=== PATIENT | male | born 1980 | race Caucasian/White ===

== ENCOUNTER 2017-10-26 14:19 | Emergency (ER) | END 2017-10-26 17:12 | disposition home or self-care (01) ==

== ENCOUNTER 2017-10-28 12:00 | Emergency (ER) | END 2017-10-28 15:30 | disposition home or self-care (01) ==

== ENCOUNTER 2018-08-27 12:52 | Emergency (ER) | payer SELFPAY ==
[~2018-08-27] VITALS: Ht 170.2 cm; Wt 93.0 kg
[~2018-08-27 12:52] MED LIST: ACET500C5 PO; IBUP-1542 PO; LISI10TA2 PO; SODI126M NASAL
[2018-08-27 12:53] VITALS: Ht 170.2 cm; Wt 93.0 kg
[2018-08-27] MEDS ORDERED: ONDANSETRON (ODT) 4 MG TAB ODT STA (14:10)
[2018-08-27] MEDS ORDERED: SOD CHLORIDE 0.9% 1,000 ML IV ONE (14:30)
[2018-08-27] MEDS ORDERED: IBUPROFEN 600 MG TAB PO ONE (14:30)
--- NOTE | 2018-08-27 14:31 | ERD ---
ER Documentation Chief Complaint Chief Complaint fever, cough, body aches x5 hrs HPI 38-year-old male presenting to the emergency department complaining of left- sided chest pain intermittently for the past 5 hours. The patient has also had headache, fever, and nausea. Symptoms are moderate to severe. The patient took no medication for relief of symptoms. He states the symptoms came on gradually after waking up today. He denies dyspnea on exertion, abdominal pain, vomiting, or other symptoms at this time. ROS All systems reviewed and are negative except as per history of present illness. Medications Home Meds Active Scripts Ibuprofen* (Motrin*) 800 Mg Tab, 800 MG PO Q6, #30 TAB Prov:KHARI WARREN PA-C 08/27/18 Ibuprofen* (Motrin*) 600 Mg Tab, 600 MG PO Q6H PRN for PAIN AND OR ELEVATED TEMP, #30 TAB Prov:FINESSE DURHAM MD 10/28/17 Lisinopril* (Lisinopril*) 10 Mg Tablet, 10 MG PO DAILY, #30 TAB Prov:VALERIA WILKINS NP 10/26/17 Acetaminophen* (Tylophen*) 500 Mg Capsule, 1 CAP PO Q6H PRN for PAIN AND OR ELEVATED TEMP, #20 CAP Prov:VALERIA WILKINS NP 10/26/17 Sodium Chloride (Saline Nasal Mist) 126 Ml Mist, 2 SPRAY NASAL Q2H PRN for NASAL CONGESTION, #1 BOTTLE Prov:VALERIA WILKINS NP 10/26/17 Allergies Allergies: Coded Allergies: No Known Allergy (Unverified , 10/28/17) PMhx/Soc History of Surgery: No Anesthesia Reaction: No Hx Neurological Disorder: No Hx Respiratory Disorders: No Hx Cardiac Disorders: Yes (Hypertension) Hx Psychiatric Problems: No Hx Miscellaneous Medical Probl: No Hx Alcohol Use: No Hx Substance Use: No Hx Tobacco Use: No Smoking Status: Never smoker FmHx Family History: No diabetes Physical Exam Vitals Vital Signs Date Temp Pulse Resp B/P (MAP) Pulse Ox O2 O2 Flow FiO2 Time Delivery Rate 08/27/18 210.8 110 22 136/84 99 Room Air 16:12 (101) 08/27/18 99.3 15:52 08/27/18 100.6 115 22 126/77 Room Air 15:15 (93) 08/27/18 100.3 129 18 169/104 96 12:53 (125) Physical Exam Const: No acute distress Head: Atraumatic Eyes: Normal Conjunctiva ENT: Normal External Ears, Nose and Mouth. Neck: Full range of motion. No meningismus. Resp: Clear to auscultation bilaterally Cardio: Regular rate and rhythm, no murmurs. Reproducible chest wall tenderness to palpation on the left. No crepitus to palpation. Abd: Soft, non tender, non distended. Normal bowel sounds Skin: No petechiae or rashes Back: No midline or flank tenderness Ext: No cyanosis, or edema Neur: Awake and alert Psych: Normal Mood and Affect Result Diagram: 08/27/18 1503 08/27/18 1503 Results 24 hrs Laboratory Tests Test 08/27/18 15:03 White Blood Count 7.6 10^3/ul Red Blood Count 5.04 10^6/ul Hemoglobin 13.6 g/dl Hematocrit 41.3 % Mean Corpuscular Volume 81.9 fl Mean Corpuscular Hemoglobin 27.0 pg Mean Corpuscular Hemoglobin Concent 32.9 g/dl Red Cell Distribution Width 13.6 % Platelet Count 197 10^3/UL Mean Platelet Volume 10.1 fl Immature Granulocytes % 0.400 % Neutrophils % 75.8 % Lymphocytes % 10.5 % Monocytes % 12.2 % Eosinophils % 0.8 % Basophils % 0.3 % Nucleated Red Blood Cells % 0.0 /100WBC Immature Granulocytes # 0.030 10^3/ul Neutrophils # 5.8 10^3/ul Lymphocytes # 0.8 10^3/ul Monocytes # 0.9 10^3/ul Eosinophils # 0.1 10^3/ul Basophils # 0.0 10^3/ul Nucleated Red Blood Cells # 0.0 10^3/ul Sodium Level 140 mmol/L Potassium Level 3.9 mmol/L Chloride Level 99 mmol/L Carbon Dioxide Level 27 mmol/L Anion Gap 14 Blood Urea Nitrogen 9 mg/dl Creatinine 0.69 mg/dl Est Glomerular Filtrat Rate mL/min > 60 mL/min Glucose Level 99 mg/dl Calcium Level 9.5 mg/dl Troponin I < 0.012 ng/ml Current Medications Medications Dose Sig/Rubio Start Time Status Last (Trade) Ordered Route PRN Stop Time Admin Dose Reason Admin Ibuprofen 600 mg ONCE ONCE 2/16/19 DC 08/27/18 (Motrin) PO 14:30 14:28 08/27/18 14:31 Ondansetron 4 mg ONCE STAT 08/27/18 DC 08/27/18 HCl (Zofran ODT 14:10 14:28 Odt) 08/27/18 14:16 Sodium 1,000 ml @ Q1H ONCE 08/27/18 DC 08/27/18 Chloride 1,000 mls/hr IV 14:30 14:28 08/27/18 15:29 650 mg ONCE ONCE 08/27/18 DC 08/27/18 Acetaminophen PO 16:00 15:52 (Tylenol 08/27/18 16:01 Tab) Procedures/MDM 38-year-old male presenting to the emergency department complaining of chest pain, nausea, and fever and headache. Patient was administered ibuprofen and Zofran in the department with good response. EKG and chest x-ray were not concerning for any acute cardiac abnormalities. CBC and BMP were within normal limits. Troponin was within normal limits. Influenza a and B swab was negative. Patient was initially found to be tachycardic at 129 bpm but pulse improved to 110 bpm prior to discharge. EKG: Interpreted by ED physician. Rate/Rhythm: Sinus tachycardia with a rate of 122 bpm. QRS, ST, T-waves: No changes consistent w/ acute ischemia Impression: No evidence of ischemia or arrhythmia Medical decision making: Recent symptoms are likely secondary to acute viral syndrome or costochondritis. No evidence to suggest aortic dissection, pneumo thorax, pneumonia, pulmonary embolism, or other emergencies. Patient stable and appropriate for discharge and further treatment as an outpatient. She agreed with the diagnosis, plan, need for follow-up, return precautions. No evidence of life-threatening pathology at time of discharge. Pt/family in agreement with discharge plan/diagnosis. Pt/family advised to return immediately with any new or worsening symptoms. Follow-up with primary care physician within the next 1- 2 days. Patient's blood pressure was elevated (>120/80) but appears stable without evidence of hypertension emergency or urgency. The patient is to follow-up and pursue outpatient monitoring and therapy with their primary care physician within 1 week and return immediately if they have any new, worsening, or concerning symptoms. Departure Diagnosis: Primary Impression: Influenza-like symptoms Condition: Fair Patient Instructions: Influenza (Adult) Additional Instructions: Follow up with your PCP within the next 1-3 days for a repeat evaluation. If you require a referral to a specialist, your Primary Care Provider may be able to provide this for you. In most patient cases, a referral is not required. If you have further questions regarding this matter, please ask your Primary Care Provider. Return the the emergency department immediately if symptoms worsen or change. If you have any questions regarding medications, ask your pharmacist or us before you leave. If any adverse reactions, occur while taking your medications, discontinue the treatment and return to the emergency department immediately. If any new or worsening symptoms, uncontrolled fevers, or other unexplained symptoms occur, return to the emergency department immediately. Take your medications as directed, and complete the entire course of treatment. KHARI WARREN PA-C Aug 27, 2018 14:31
[2018-08-27] MEDS ORDERED: IBUP800T48 PO (15:58)
[2018-08-27] MEDS ORDERED: ACETAMINOPHEN 325 MG TAB PO ONE (16:00)
[2018-08-27 16:12] VITALS: BP 136/84; PULSE 110; RESP 22
== END 2018-08-27 16:13 | disposition home or self-care (01) ==
LOC: FTE 12:52
DX: R50.9 Fever, unspecified (principal); R07.9 Chest pain, unspecified; R11.0 Nausea; R51 Headache; I10 Essential (primary) hypertension
CPT/HCPCS: 71046; 80048; 84484; 85025; 87400; 96360; 99285; J7030